=== PATIENT | female | born 1990 | race Two or more races ===

== ENCOUNTER 2017-02-13 12:50 | Emergency (ER) | payer BC ==
[~2017-02-13] VITALS: Ht 167.6 cm; Wt 90.0 kg
[2017-02-13 13:16] LABS: Basophils # (auto) 0 uL; Basophils % (auto) 0.3 % (0.0-2.0); Eosinophils # (auto) 0.1 uL; Hematocrit 41.6 % (36.0-46.0); Hemoglobin 14.1 g/dL (12.2-16.2); Lymphocytes # (auto) 2.3 uL; Lymphocytes % (auto) 31.2 % (10.0-50.0); Mean Corpuscular Hemoglobin 29.8 pg (28.0-32.0); Mean Corpuscular Volume 87.7 fL (80.0-100.0); Mean Platelet Volume 6.8 fL (6.9-10.8); Monocytes # (auto) 0.6 uL; Monocytes % (auto) 7.7 % (0.0-12.0); Neutrophils # (auto) 4.5 uL; Neutrophils % (auto) 59.8 % (37.0-80.0); Platelet Count (auto) 346 10^3/uL (140-450); Red Cell Distribution Width 14.4 % (11.8-14.3); White Blood Cell 7.5 10^3/uL (4.4-10.8)
[2017-02-13 13:26] LABS: Urine Bilirubin Negative (Negative); Urine Blood 3+ /uL (Negative); Urine Glucose Normal (Normal); Urine Ketone Negative (Negative); Urine Nitrite Negative (Negative); Urine RBC 592 /hpf (0 - 4); Urine Squamous Epithelial Cell FEW /hpf (<5); Urine Urobilinogen Normal (Negative)
[2017-02-13 13:27] LABS: Urine Color Red (Yellow)
[2017-02-13 13:50] LABS: Albumin 3.7 g/dL (3.4-5.0); BUN/Creatinine Ratio 11.6; Bilirubin, Total 0.3 mg/dL (0.2-1.0); Calcium 8.8 mg/dL (8.5-10.1); Potassium 3.9 mmol/L (3.5-5.1); Total Protein 7.8 g/dL (6.4-8.2)
[2017-02-13 17:09] VITALS: BP 123/74
== END 2017-02-13 18:03 | disposition home or self-care (01) ==
LOC: ER 12:50
DX: O03.9 Complete or unspecified spontaneous abortion without complication (principal); O23.41 Unspecified infection of urinary tract in pregnancy, first trimester; Z3A.01 Less than 8 weeks gestation of pregnancy
CPT/HCPCS: 36415; 76801; 76817; 80053; 81001; 84702; 85025

== ENCOUNTER 2021-11-24 10:54 | Emergency (ER) | payer BC, OTHER ==
[~2021-11-24] VITALS: Ht 167.6 cm; Wt 74.0 kg
[2021-11-24] MEDS ORDERED: LIDOCAINE 1% HCL (LOCAL ANESTH.) INJ 20ML MDV IJ ONE (12:30)
[2021-11-24 12:41] VITALS: BP 120/65
[2021-11-24] MEDS ORDERED: CEPH-510 PO (12:43)
[2021-11-24] MEDS ORDERED: TETANUS-DIPTH-ACEL PERTUSSIS 0.5ML SYR Tdap IM ONE (12:45)
== END 2021-11-24 12:54 | disposition home or self-care (01) ==
LOC: ER 10:54
DX: S61.210A Laceration without foreign body of right index finger without damage to nail, initial encounter (principal); F12.10 Cannabis abuse, uncomplicated; W23.0XXA Caught, crushed, jammed, or pinched between moving objects, initial encounter; Y93.89 Activity, other specified; Y92.89 Other specified places as the place of occurrence of the external cause; Y99.8 Other external cause status
CPT/HCPCS: 12002; 73130; 90471; 90715; 99283; J2001

== ENCOUNTER 2021-12-04 10:29 | Emergency (ER) | payer OTHER ==
[~2021-12-04] VITALS: Ht 167.6 cm; Wt 72.3 kg
[~2021-12-04 10:29] MED LIST: CEPH-510 PO
[2021-12-04 10:36] VITALS: BP 134/63
== END 2021-12-04 14:29 | disposition left against medical advice (07) ==
LOC: ER 10:29
DX: S61.210D Laceration without foreign body of right index finger without damage to nail, subsequent encounter (principal); X58.XXXD Exposure to other specified factors, subsequent encounter